=== PATIENT | female | born 1970 | race Caucasian/White ===

== ENCOUNTER → 2019-09-25 09:12 | Outpatient (CLI) | payer BC, SELFPAY ==
--- NOTE | ~2019-09-25 | MM_ITS ---
EXAMINATION: MM diagnostic chinyere BI w kell HISTORY: Dense breast tissue in history of breast lumps TECHNIQUE: Craniocaudal, mediolateral, and mediolateral oblique 3-D tomosynthesis images were obtaine d and synthetic 2-D images were generated. CAD analysis was submitted and interpreted. COMPARISON: 02/06/2018, 09/29/2016, 09/18/2016, 08/10/2011, 07/22/2011 BREAST PARENCHYMAL COMPOSITION: The breasts are heterogeneously dense, which may obscure small masses . FINDINGS: A focal asymmetry in the upper outer quadrant of the left breast is stable when compared to multiple prior mammograms. There is no evidence of suspicious mass, calcification, or architectural distortion to suggest malignancy in either breast. There has been no suspicious interval change. IMPRESSION: 1. No mammographic evidence of malignancy. 2. Recommend routine screening mammography in one year. BI-RADS Category 2: Benign finding(s). Reviewed, dictated and finalized at location A.
== END ==
DX: R92.2 Inconclusive mammogram (principal)
CPT/HCPCS: 77062; 77066; G0279

== ENCOUNTER → 2021-11-18 09:16 | Outpatient (CLI) | payer BC, SELFPAY ==
--- NOTE | ~2021-11-18 | US_ITS ---
EXAMINATION: US pelvic complete w TV DATE: 11/18/2021 11:45 INDICATION: Enlarged uterus TECHNIQUE: Multiple transabdominal and endovaginal sonographic images of the pelvis were obtained. COMPARISON: 09/18/2016 FINDINGS: The uterus measures 6.0 x 3.4 x 4.1 cm. There is a 7.8 x 5.8 x 5.9 cm fibroid of the right uterus. There is a 6.9 x 6.5 x 6.3 cm fibroid of the left uterus. The endometrial complex measures 5 mm. The ovaries are not visualized however no adnexal abnormality is seen. There is no free fluid in the pelvis. IMPRESSION: 1. Uterine fibroids without significant change accounting for slight difference in technique. Reviewed, dictated and finalized at location B.
--- NOTE | ~2021-11-18 | MMUS_ITS ---
EXAMINATION: MM diagnostic chinyere BI w kell, US breast BI complete HISTORY: Dense breast parenchyma TECHNIQUE: Bilateral full field and spot 3-D tomosynthesis images were performed and synthetic 2-D im ages were generated. CAD analysis was submitted and interpreted. High resolution complete bilateral b reast ultrasound including all 4 quadrants and subareolar areas was performed. COMPARISON: 09/25/2019, 02/06/2018 bilateral diagnostic mammogram examinations BREAST PARENCHYMAL COMPOSITION: The breasts are extremely dense, which lowers the sensitivity of mamm ography. FINDINGS: MAMMOGRAPHIC FINDINGS: Fibroglandular asymmetry is again noted. There is very dense stroma which may obscure masses. No appa rent architectural distortion, malignant calcification, skin thickening or retraction. Partially calc ified fibroadenomas again noted on the left. ULTRASOUND: Very dense stroma is noted bilaterally, especially right breast 10:00 7 cm from nipple and left breas t 2:00 8 cm from nipple. No suspicious mass is suggested. The very dense stroma limits both mammographic and sonographic examinations. Close correlation with p hysical examination is critical. Negative mammogram and ultrasound and ultrasound examinations do not preclude further evaluation of any clinically suspicious palpable abnormality. IMPRESSION: 1. No mammographic evidence of malignancy 2. Routine mammographic screening annually is recommended. Negative mammogram and ultrasound do not p reclude further evaluation of any clinically suspicious abnormality. BI-RADS Category 2: Benign finding(s). Reviewed, dictated and finalized at location A. IMPRESSION: 1. No mammographic evidence of malignancy 2. Routine mammographic screening annually is recommended. Negative mammogram a nd ultrasound do not preclude further evaluation of any clinically suspicious a bnormality. BI-RADS Category 2: Benign finding(s).
== END ==
PROVIDERS: Visit Provider Obstetrics & Gynecology
DX: N85.2 Hypertrophy of uterus (principal); R92.2 Inconclusive mammogram; D25.9 Leiomyoma of uterus, unspecified
CPT/HCPCS: 76641; 76830; 76856; 77062; 77066; G0279

== ENCOUNTER 2025-05-29 15:01 | Outpatient (CLI) | payer BC, SELFPAY ==
--- NOTE | ~2025-05-29 | MM_ITS ---
EXAMINATION: MM screening chinyere BI w kell HISTORY: Screening TECHNIQUE: Craniocaudal and mediolateral oblique 3-D tomosynthesis images were obtained and synthetic 2-D images were generated. CAD analysis was submitted and interpreted. COMPARISON: Comparison to multiple prior studies sequentially, with oldest reviewed study dated 09/18/2016. BREAST PARENCHYMAL COMPOSITION: Dense: The breasts are extremely dense, which lowers the sensitivity of mammography. FINDINGS: There is no evidence of suspicious mass, calcification, or architectural distortion to suggest malignancy in either breast. There has been no suspicious interval change. IMPRESSION: 1. No mammographic evidence of malignancy. 2. Recommend routine screening mammography in one year. BI-RADS Category 1: Negative Reviewed, dictated and finalized at location B. [employer]
== END 2025-05-29 15:02 | disposition home or self-care (01) ==
LOC: MICIMG 15:02
DX: Z12.31 Encounter for screening mammogram for malignant neoplasm of breast (principal)
CPT/HCPCS: 77063; 77067